=== PATIENT | female | born 1995 | race Caucasian/White ===

== ENCOUNTER 2017-02-17 15:12 | Emergency (ER) | payer BC, OTHER ==
[2017-02-17 15:22] VITALS: TEMP 97.8
--- NOTE | 2017-02-17 16:53 | ED ---
General Adult HPI - General Chief complaint: Chest Pain Stated complaint: Chest Pain Time Seen by Provider: 02/17/17 15:30 Source: patient Mode of arrival: wheelchair Limitations: no limitations - Related Data Previous Rx's Medication Instructions Recorded Nitrofurantoin Monohyd/M-Cryst 100 mg PO Q12HR #6 cap 02/17/17 [Macrobid] Phenazopyridine [Pyridium] 100 mg PO TID #6 tablet 02/17/17 Allergies Allergy/AdvReac Type Severity Reaction Status Date / Time No Known Allergies Allergy Verified 02/17/17 15:22 Review of Systems ROS Statement: Those systems with pertinent positive or pertinent negative responses have been documented in the HPI. ROS Other: All systems not noted in ROS Statement are negative. Past Medical History Past Medical History: No Reported History History of Any Multi-Drug Resistant Organisms: None Reported Past Surgical History: Adenoidectomy, Tonsillectomy Past Psychological History: Anxiety, Depression Smoking Status: Former smoker Past Alcohol Use History: None Reported Past Drug Use History: None Reported General Exam Limitations: no limitations Course Vital Signs 02/17/17 02/17/17 02/17/17 15:19 15:49 17:21 Temperature 97.8 F Pulse Rate 88 82 Respiratory 20 20 18 Rate Blood Pressure 126/74 113/59 O2 Sat by Pulse 99 100 Oximetry EKG Findings - EKG Results: EKG: interpreted by ERIKA CRISTINA (Rate 88 bpm), sinus rhythm, normal axis, normal QRS, normal ST/T, no acute changes - [place], Pacemaker, Normal: Normal tracing: normal tracing Medical Decision Making - Lab Data Lab Results 02/17/17 02/17/17 02/17/17 Range/Units 16:52 16:52 16:52 Urine Color Light Yellow Urine Appearance Clear (Clear) Urine pH 5.5 (5.0-8.0) Ur Specific [place] 1.010 (1.001-1.035) Urine Protein Negative (Negative) Urine Glucose (UA) Negative (Negative) Urine Ketones Negative (Negative) Urine Blood Negative (Negative) Urine Nitrite Positive H (Negative) Urine Bilirubin Negative (Negative) Urine Urobilinogen <2.0 (<2.0) mg/dL Ur Leukocyte Esterase Small H (Negative) Urine RBC 1 (0-5) /hpf Urine WBC 20 H (0-5) /hpf Ur Squamous Epith Cells 1 (0-4) /hpf Urine Bacteria Many H (None) /hpf Urine Mucus Rare H (None) /hpf Urine HCG, Qual Not Detected (Not Detectd) Group A Strep Rapid Negative (Negative) Disposition Clinical Impression: Urinary tract infection, Upper respiratory infection Disposition: HOME SELF-CARE Condition: Good Instructions: Urinary Tract Infection in Women (ED) Prescriptions: Nitrofurantoin Monohyd/M-Cryst [Macrobid] 100 mg PO Q12HR #6 cap Phenazopyridine [Pyridium] 100 mg PO TID #6 tablet Referrals: Kaden Fields MD [Primary Care Provider] - 1-2 days
[2017-02-17 17:16] LABS: Appearance,Urine Clear (Clear); Bacteria,Urine Many /hpf; Bilirubin,Urine Negative (Negative); Glucose,Urine (UA) Negative (Negative); Ketones,Urine Negative (Negative); Leukocyte Esterase,Urine Small (Negative); Mucus,Urine Rare /hpf; Nitrite,Urine Positive (Negative); PH, Urine 5.5 (5.0-8.0); Particle Count 19111; Protein,Urine Negative (Negative); RBC,Urine 1 /hpf (0-5); Squamous Epithelial Cell,Urine 1 /hpf (0-4); UA Billing (MACRO vs. MICRO) MICRO; Urobilinogen,Urine <2.0 mg/dL (<2.0); WBC,Urine 20 /hpf (0-5)
[2017-02-17 17:22] VITALS: BP 113/59; PULSE 82; RESP 18
[2017-02-17] MEDS ORDERED: NITROFURANTOIN MONOHYD/M-CRYST 100 MG CAP PO STA (17:23)
[2017-02-17] MEDS ORDERED: PHENAZOPYRIDINE 100 MG TAB PO STA (17:24)
== END 2017-02-17 17:36 | disposition home or self-care (01) ==
LOC: EC 15:12
DX: J06.9 Acute upper respiratory infection, unspecified (principal); N39.0 Urinary tract infection, site not specified; Z87.891 Personal history of nicotine dependence
CPT/HCPCS: 81001; 81025; 87081; 87430; 93005; 99285